=== PATIENT | male | born 1980 ===

== ENCOUNTER 2020-03-03 09:53 | Outpatient (CLI) | payer OTHER, SELFPAY | END 2020-03-03 09:54 | disposition home or self-care (01) | LOC: ANHAUDIO 09:56 | PROVIDERS: PCP Family Medicine; Visit Provider Family Medicine | DX: H65.21 Chronic serous otitis media, right ear (principal); H90.71 Mixed conductive and sensorineural hearing loss, unilateral, right ear, with unrestricted hearing on the contralateral side | CPT/HCPCS: 92557; 92567 ==